=== PATIENT | male | born 1980 | race Hispanic/Latino ===

== ENCOUNTER 2022-05-30 19:57 | Emergency (ER) | payer OTHER ==
[2022-05-30] MEDS ORDERED: predniSONE 20 MG TAB ONE (21:02)
[2022-05-30] MEDS ORDERED: HYDROcodone/Acetaminophen 5/325 mg Tablet ONE (21:02)
[2022-05-30] MEDS ORDERED: Ibuprofen 200 MG TAB ONE (21:02)
== END 2022-05-30 21:08 | disposition home or self-care (01) ==
LOC: BURERS 19:57
DX: S29.011A Strain of muscle and tendon of front wall of thorax, initial encounter (principal); I10 Essential (primary) hypertension; F17.210 Nicotine dependence, cigarettes, uncomplicated; Z79.899 Other long term (current) drug therapy; X58.XXXA Exposure to other specified factors, initial encounter
CPT/HCPCS: 99284; J7512

== ENCOUNTER 2025-05-01 18:44 | Emergency (ER) | payer BC, OTHER ==
[2025-05-01] MEDS ORDERED: predniSONE 20 MG TAB ONE (19:06)
== END 2025-05-01 19:11 ==
LOC: BURERS 18:44
DX: J34.9 Unspecified disorder of nose and nasal sinuses (principal); I10 Essential (primary) hypertension; F17.210 Nicotine dependence, cigarettes, uncomplicated; Z79.899 Other long term (current) drug therapy
CPT/HCPCS: J7512